=== PATIENT | male | born 1965 | race Native Hawaiian/Other Pacific Islander ===

== ENCOUNTER 2019-07-12 10:00 | Outpatient (CLI) | payer BC | END 2019-07-12 20:07 | disposition home or self-care (01) | LOC: RAD 10:00 | DX: M25.562 Pain in left knee (principal) ==

== ENCOUNTER 2019-09-21 16:51 | Outpatient (CLI) | payer BC | END 2019-09-21 19:19 | disposition home or self-care (01) | LOC: RAD 16:51 | DX: M54.16 Radiculopathy, lumbar region (principal) ==

== ENCOUNTER 2021-02-07 17:35 | Emergency (ER) | payer OTHER ==
[~2021-02-07] VITALS: Ht 165.1 cm; Wt 129.3 kg
[2021-02-07 20:33] VITALS: BP 175/85; TEMP 98.6
== END 2021-02-07 20:33 | disposition home or self-care (01) ==
LOC: ED 17:35
PROC: 0HQGXZZ Repair Left Hand Skin, External Approach (ICD-10-PCS; principal; 2021-02-07)
DX: S61.012A Laceration without foreign body of left thumb without damage to nail, initial encounter (principal); W29.8XXA Contact with other powered hand tools and household machinery, initial encounter; Y92.89 Other specified places as the place of occurrence of the external cause
CPT/HCPCS: 90471; 90715; 99283; J7040

== ENCOUNTER 2021-02-14 10:53 | Emergency (ER) | payer OTHER ==
[~2021-02-14] VITALS: Ht 165.1 cm; Wt 127.0 kg
[2021-02-14 11:00] VITALS: BP 172/106; TEMP 98.5
== END 2021-02-14 11:40 | disposition home or self-care (01) ==
LOC: ED 10:53
DX: Z51.89 Encounter for other specified aftercare (principal)
CPT/HCPCS: 99282

== ENCOUNTER 2021-02-18 10:13 | Emergency (ER) | payer OTHER ==
[~2021-02-18] VITALS: Ht 165.1 cm; Wt 129.3 kg
[2021-02-18 11:35] VITALS: BP 103/59; TEMP 97.6
== END 2021-02-18 11:35 | disposition home or self-care (01) ==
LOC: ED 10:13
DX: Z48.02 Encounter for removal of sutures (principal); S60.012D Contusion of left thumb without damage to nail, subsequent encounter

== ENCOUNTER 2021-12-01 16:29 | Outpatient (CLI) | payer OTHER ==
[2021-12-02 09:43] LABS: PLATELET COUNT 248 K/uL (142-355)
[2021-12-02 10:10] LABS: POTASSIUM 3.8 mmol/L (3.6-5.2)
== END 2021-12-01 19:09 | disposition home or self-care (01) ==
LOC: LABW 16:29
PROVIDERS: ATTEND Nurse Practitioner Acute Care
DX: K52.9 Noninfective gastroenteritis and colitis, unspecified (principal)
CPT/HCPCS: 36415; 80053; 83993; 85027; 85652; 86140; 87015; 87045; 87324; 87328; 87329; 87449; 87899

== ENCOUNTER 2023-03-18 08:12 | Outpatient (CLI) | payer OTHER ==
[2023-03-18 08:29] LABS: PLATELET COUNT 186 K/uL (142-355)
[2023-03-18 09:08] LABS: POTASSIUM 3.8 mmol/L (3.6-5.2)
== END 2023-03-18 20:45 | disposition home or self-care (01) ==
LOC: LABW 08:12
PROVIDERS: ATTEND Specialist
DX: Z01.810 Encounter for preprocedural cardiovascular examination (principal); I25.10 Atherosclerotic heart disease of native coronary artery without angina pectoris; Z95.5 Presence of coronary angioplasty implant and graft; R06.02 Shortness of breath; I10 Essential (primary) hypertension
CPT/HCPCS: 36415; 80048; 85027